=== PATIENT | male | born 1980 | race Caucasian/White ===

== ENCOUNTER 2017-10-15 14:56 | Observation (INO) | END 2017-10-17 14:45 | disposition home or self-care (01) | DX: S06.0X9A Concussion with loss of consciousness of unspecified duration, initial encounter (principal); S80.01XA Contusion of right knee, initial encounter; S80.02XA Contusion of left knee, initial encounter; E86.0 Dehydration; G93.40 Encephalopathy, unspecified; R11.2 Nausea with vomiting, unspecified; F14.10 Cocaine abuse, uncomplicated; N17.9 Acute kidney failure, unspecified; V89.2XXA Person injured in unspecified motor-vehicle accident, traffic, initial encounter | CPT/HCPCS: 70450; 71045; 72125; 72170; 73560; 80048; 80307; 82550; 85025; 85610; 85730; 86850; 86900; 86901; 96361; 96365; 96372; 96375; 96376; 99285; G0378; J0780; J2060; J2310; J2550; J2765; J7030 ==